=== PATIENT | female | born 1965 | race Caucasian/White ===

== ENCOUNTER → 2016-05-18 | Outpatient (CLI) | payer OTHER ==
--- NOTE | 2016-05-18 13:53 | REPMRS ---
Patient History The patient states she had a clinical breast exam in 2016.Patient is postmenopausal. Family history of breast cancer in paternal aunt at age 45. Digital Mammo Screening Bilat: May 18, 2016 - Exam #: [id number] Bilateral CC and MLO view(s) were taken. Technologist: Opal Walkre, Technologist Prior study comparison: March 07, 2012, digital bilateral screening mammo, [facility]. February 06, 2010, digital bilateral screening mammo, performed at [facility]. FINDINGS: There are scattered fibroglandular densities. There has been no change in the appearance of the mammogram from the prior studies. There is a mild amount of scattered fibroglandular density which is fairly symmetric. There is no interval development of dominant mass, architectural distortion, or clustered microcalcification suggestive of malignancy. ASSESSMENT: BI-RADS/ACR category 1 mammogram. Negative. Recommendation Routine screening mammogram in 1 year (for women over age 40). This mammogram was interpreted with the aid of an FDA-approved computer-aided dectection system. Electronically Signed By: Issac Guzman MD 05/18/16 [id number]
== END ==
LOC: M RAD 11:52
PROVIDERS: ATTEND Obstetrics & Gynecology
DX: Z12.31 Encounter for screening mammogram for malignant neoplasm of breast (principal)